=== PATIENT | female | born 1945 | race Caucasian/White ===

== ENCOUNTER 2022-08-18 16:37 | Inpatient (IN) | payer MEDICARE, OTHER ==
[2022-08-18] MEDS ORDERED: SODIUM CHLORIDE 0.9% 500 ML 500 ML IV STA (17:01)
--- NOTE | 2022-08-18 17:06 | ED ---
General Adult HPI - General Chief complaint: Syncope Stated complaint: Weakness,knee pain Time Seen by Provider: 08/18/22 16:41 Source: patient, RN notes reviewed Mode of arrival: EMS Limitations: no limitations - History of Present Illness Initial comments: This is a pleasant 77-year-old female comes ER complaining of right knee pain. Patient states she fell in the bathroom onto her right knee. Initially saying that she L and she is going to pass out walker. No radiation. Pain is exacerbated by attempted ambulation, palpation, and movement. Somewhat alleviated by rest. With the the patient also did bump her head despite his efforts to try to catch her. Patient is not on anticoagulation medications. No headache, no fever or chills, no changes in vision or hearing, no sore throat or difficulty with speech, no neck pain, no chest pain or shortness of breath, no abdominal pain, no nausea or vomiting, no changes in urination or bowel movements, no numbness or tingling, no extremity pain, no skin rashes or lesions. Past medical, surgical, social, and family history reviewed. The patient is denying any headache, neck pain, patient had no focal neurologic deficits. No symptoms consistent with stroke or seizure. - Related Data Home Medications Medication Instructions Recorded Confirmed Naproxen (Unknown Dose) 1 tab PO DAILY PRN 08/18/22 08/18/22 Allergies Allergy/AdvReac Type Severity Reaction Status Date / Time No Known Allergies Allergy Verified 08/18/22 18:23 Review of Systems ROS Statement: Those systems with pertinent positive or pertinent negative responses have been documented in the HPI. ROS Other: All systems not noted in ROS Statement are negative. Past Medical History Past Medical History: No Reported History History of Any Multi-Drug Resistant Organisms: None Reported Past Surgical History: Joint Replacement, Orthopedic Surgery Past Psychological History: No Psychological Hx Reported Smoking Status: Current every day smoker Past Alcohol Use History: None Reported Past Drug Use History: Marijuana General Exam - General Exam Comments Initial Comments: Healthy-appearing 77-year-old female in no significant distress at the time seeing her. Cranial nerves II through XII are intact. Head is normocephalic atraumatic. No evidence of hematoma or injury. Limitations: no limitations General appearance: alert, in no apparent distress Head exam: Present: atraumatic, normocephalic, normal inspection Eye exam: Present: normal appearance, PERRL, EOMI. Absent: scleral icterus, conjunctival injection, periorbital swelling ENT exam: Present: normal exam, mucous membranes moist Neck exam: Present: normal inspection, full ROM. Absent: tenderness, men ingismus, lymphadenopathy Respiratory exam: Present: normal lung sounds bilaterally. Absent: respiratory distress, wheezes, rales, rhonchi, stridor, chest wall tenderness, accessory muscle use, decreased breath sounds, prolonged expiratory Cardiovascular Exam: Present: regular rate, normal rhythm, normal heart sounds. Absent: systolic murmur, diastolic murmur, rubs, gallop, clicks GI/Abdominal exam: Present: soft, normal bowel sounds. Absent: distended, tenderness, guarding, rebound, rigid Extremities exam: Present: tenderness, normal capillary refill. Absent: pedal edema, calf tenderness Right Hip exam: Present: normal inspection, full ROM. Absent: swelling, abrasion Upper Leg exam: Present: normal inspection. Absent: tenderness, swelling Knee exam: Present: tenderness, swelling, effusion, full knee extension. Absent: full ROM (Limited by pain), abrasion, laceration, ecchymosis, deformity, dislocation, erythema Lower Leg exam: Present: normal inspection. Absent: tenderness, swelling, abrasion Ankle exam: Present: normal inspection, full ROM. Absent: tenderness, swelling Foot/Toe exam: Present: normal inspection, full ROM. Absent: tenderness, swelling, abrasion Neurovascular tendon exam: Absent: no vascular compromise, abnormal cap refill, sensory deficit, tendon deficit, extremity cold to touch, pallor Gait: not tested/not observed Back exam: Present: normal inspection Neurological exam: Present: alert, oriented X3, CN II-XII intact Psychiatric exam: Present: normal affect, normal mood Skin exam: Present: warm, dry, intact, normal color. Absent: rash Course Vital Signs 08/18/22 16:44 Temperature 98 F Pulse Rate 68 Respiratory 18 Rate Blood Pressure 121/70 O2 Sat by Pulse 100 Oximetry - Reevaluation(s) Reevaluation #1: 08/18/22 19:01 Medical record is reviewed Symptoms are improved here in the emergency department, patient cannot ambulate due to pain, patient cranial nerves II through XII intact. Alert and oriented 4. Patient is informed of results and questions answered Patient in no distress 10/24/22 19:36 - Consultations Consultation #1: Case discussed in detail with Dr. Douglass with sepsis admission of the patient. Orthopedics will be on consult. Consultation #2: Case discussed in detail with the on-call orthopedic physician, Dr. Villanueva. Patient being admitted for syncope, secondarily for a knee injury after having a syncopal episode. He is okay with the patient be admitted to medicine and he can be on consult. He did not believe the patient needed to be admitted to trauma service. EKG Findings - EKG Comments: EKG Findings:: EKG done at 1744 and reviewed by the ED attending physician reveals sinus rhythm with sinus arrhythmia, rate of 66, prolonged QRS duration of 120 ms. Remainder of the intervals are normal. Left axis deviation. R Angela. In V1 and V2 consistent with right bundle-branch block. 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 Poor R-wave progression. No comparison study Medical Decision Making - Medical Decision Making Forsan syncope score Low risk 1.9% risk of 30-day serious adverse event (, arrhythmia, [place] full list in Evidence) - Lab Data Result diagrams: 08/18/22 17:43 08/18/22 17:43 Lab Results 08/18/22 08/18/22 08/18/22 Range/Units 17:43 17:43 17:43 WBC 9.7 (3.8-10.6) k/uL RBC 4.33 (3.80-5.40) m/uL Hgb 13.5 (11.4-16.0) gm/dL Hct 41.0 (34.0-46.0) % MCV 94.8 (80.0-100.0) fL MCH 31.2 (25.0-35.0) pg MCHC 32.9 (31.0-37.0) g/dL RDW 12.8 (11.5-15.5) % Plt Count 277 (150-450) k/uL MPV 8.4 Neutrophils % 84 % Lymphocytes % 10 % Monocytes % 5 % Eosinophils % 1 % Basophils % 0 % Neutrophils # 8.2 H (1.3-7.7) k/uL Lymphocytes # 0.9 L (1.0-4.8) k/uL Monocytes # 0.5 (0-1.0) k/uL Eosinophils # 0.1 (0-0.7) k/uL Basophils # 0.0 (0-0.2) k/uL PT 10.2 (9.0-12.0) sec INR 0.9 (<1.2) APTT 22.9 (22.0-30.0) sec Sodium 135 L (137-145) mmol/L Potassium 4.9 (3.5-5.1) mmol/L Chloride 100 (98-107) mmol/L Carbon Dioxide 25 (22-30) mmol/L Anion Gap 10 mmol/L BUN 20 H (7-17) mg/dL Creatinine 0.61 (0.52-1.04) mg/dL Est GFR (CKD-EPI)AfAm >90 (>60 ml/min/1.73 sqM) Est GFR (CKD-EPI)NonAf 87 (>60 ml/min/1.73 sqM) Glucose 115 H (74-99) mg/dL Calcium 9.1 (8.4-10.2) mg/dL Magnesium 2.0 (1.6-2.3) mg/dL Total Bilirubin 0.4 (0.2-1.3) mg/dL AST 25 (14-36) U/L ALT 15 (4-34) U/L Alkaline Phosphatase 78 (38-126) U/L Troponin I (0.000-0.034) ng/mL NT-Pro-B Natriuret Pep pg/mL Total Protein 6.6 (6.3-8.2) g/dL Albumin 4.1 (3.5-5.0) g/dL 08/18/22 08/18/22 Range/Units 17:43 17:43 WBC (3.8-10.6) k/uL RBC (3.80-5.40) m/uL Hgb (11.4-16.0) gm/dL Hct (34.0-46.0) % MCV (80.0-100.0) fL MCH (25.0-35.0) pg MCHC (31.0-37.0) g/dL RDW (11.5-15.5) % Plt Count (150-450) k/uL MPV Neutrophils % % Lymphocytes % % Monocytes % % Eosinophils % % Basophils % % Neutrophils # (1.3-7.7) k/uL Lymphocytes # (1.0-4.8) k/uL Monocytes # (0-1.0) k/uL Eosinophils # (0-0.7) k/uL Basophils # (0-0.2) k/uL PT (9.0-12.0) sec INR (<1.2) APTT (22.0-30.0) sec Sodium (137-145) mmol/L Potassium (3.5-5.1) mmol/L Chloride (98-107) mmol/L Carbon Dioxide (22-30) mmol/L Anion Gap mmol/L BUN (7-17) mg/dL Creatinine (0.52-1.04) mg/dL Est GFR (CKD-EPI)AfAm (>60 ml/min/1.73 sqM) Est GFR (CKD-EPI)NonAf (>60 ml/min/1.73 sqM) Glucose (74-99) mg/dL Calcium (8.4-10.2) mg/dL Magnesium (1.6-2.3) mg/dL Total Bilirubin (0.2-1.3) mg/dL AST (14-36) U/L ALT (4-34) U/L Alkaline Phosphatase (38-126) U/L Troponin I <0.012 (0.000-0.034) ng/mL NT-Pro-B Natriuret Pep 196 pg/mL Total Protein (6.3-8.2) g/dL Albumin (3.5-5.0) g/dL Disposition Clinical Impression: Syncope and collapse, Injury of right knee, Internal derangement of right knee, Closed head injury Disposition: ADMITTED IP TO THIS [facility] Condition: Stable Is patient prescribed a controlled substance at d/c from ED?: No Referrals: None,Stated [Primary Care Provider] - 1-2 days Time of Disposition: 19:37 Decision to Admit Reason: Admit from EC Decision Time: 19:37
[2022-08-18 18:08] LABS: ALT 15 U/L (4-34); AST 25 U/L (14-36); African American GFR (CKD) >90 (>60 ml/min/1.73 sqM); Albumin 4.1 g/dL (3.5-5.0); Alkaline Phosphatase 78 U/L (38-126); Anion Gap 10 mmol/L; Basophils % (A) 0 %; Blood Urea Nitrogen 20 mg/dL (7-17); Calcium 9.1 mg/dL (8.4-10.2); Carbon Dioxide 25 mmol/L (22-30); Chloride 100 mmol/L (98-107); Eosinophils # (A) 0.1 k/uL (0-0.7); Eosinophils % (A) 1 %; Glucose 115 mg/dL (74-99); HGB 13.5 gm/dL (11.4-16.0); Lymphocytes # (A) 0.9 k/uL (1.0-4.8); Lymphocytes % (A) 10 %; MCH 31.2 pg (25.0-35.0); MCHC 32.9 g/dL (31.0-37.0); MCV 94.8 fL (80.0-100.0); Mean Platelet Volume 8.4; Monocytes # (A) 0.5 k/uL (0-1.0); Monocytes % (A) 5 %; Neutrophils # (A) 8.2 k/uL (1.3-7.7); Neutrophils % (A) 84 %; Non-African American GFR(CKD) 87 (>60 ml/min/1.73 sqM); Platelet Count 277 k/uL (150-450); Potassium 4.9 mmol/L (3.5-5.1); RBC 4.33 m/uL (3.80-5.40); RDW 12.8 % (11.5-15.5); Sodium 135 mmol/L (137-145); Total Bilirubin 0.4 mg/dL (0.2-1.3); Total Protein 6.6 g/dL (6.3-8.2); WBC 9.7 k/uL (3.8-10.6)
[2022-08-18 18:18] LABS: INR 0.9 (<1.2); Partial Thromboplastin Time 22.9 sec (22.0-30.0); Prothrombin Time 10.2 sec (9.0-12.0)
--- NOTE | 2022-08-18 18:29 | CT ---
EXAMINATION TYPE: CT brain malvin cochran con DATE OF EXAM: 08/18/2022 COMPARISON: None HISTORY: syncope/fall CT DLP: 1242.6 mGycm Automated exposure control for dose reduction was used. Images of the brain and cervical spine obtained with no contrast. There is mild atrophy. No mass effect or midline shift. No sign of intracranial hemorrhage. Calvarium is intact. There is normal aeration of the mastoid sinuses. The cervical vertebra show some mild straightening. Posterior elements are intact. Facet joints are i ntact. There is narrowing of disc spaces from C3 to C7 with minor spurring of the endplates. No compr ession fracture. Facet joints are intact. There is minimal hypertrophic facet arthropathy. IMPRESSION: Cerebral mild atrophy. No acute intracranial abnormality. Mild cervical spondylotic changes. No fracture.
--- NOTE | 2022-08-18 18:48 | XR ---
EXAMINATION TYPE: XR knee complete RT DATE OF EXAM: 08/18/2022 COMPARISON: NONE HISTORY: Knee pain TECHNIQUE: 3 views FINDINGS: There is right knee prosthesis. There are small joint effusion. I see no fracture nor dislo cation. There is vascular calcification. IMPRESSION: Negative right knee exam. No fracture seen.
--- NOTE | 2022-08-18 18:55 | XR ---
EXAMINATION TYPE: XR chest 1V portable DATE OF EXAM: 08/18/2022 COMPARISON: NONE HISTORY: Syncope TECHNIQUE: Single view FINDINGS: Heart is normal. Lungs are clear of consolidation. There is pulmonary hyperinflation with s ome flattening of the diaphragm. There are no hilar masses. Thoracic aorta is atheromatous. IMPRESSION: COPD. No active cardiopulmonary disease.
[2022-08-18] MEDS ORDERED: HYDROcodone/APAP 5-325MG 1 EACH TAB PO STA (19:37)
[2022-08-18] MEDS ORDERED: ONDANSETRON 4 MG/2 ML VIAL IVP PRN (20:08)
[2022-08-18] MEDS ORDERED: ACETAMINOPHEN TAB 325 MG TAB PO PRN (20:08)
[2022-08-18] MEDS ORDERED: NALOXONE 0.4 MG/ML 1 ML VIAL IV PRN (20:08)
[2022-08-18] MEDS ORDERED: ACETAMINOPHEN TAB 500 MG TAB PO PRN (20:14)
[2022-08-18] MEDS: HEPARIN SODIUM,PORCINE/PF 5,000 UNIT/0.5 ML SYRINGE SQ SCH (20:49)
--- NOTE | 2022-08-19 00:50 | P.HPIM ---
History of Present Illness H&P Date: 08/18/22 The patient is a 77-year-old female with a PMH of bilateral knee replacements, diverticulosis with recurrent episode of diverticulitis who presents to the emergency room after an episode of syncope with fall and right knee pain. The patient reports that she has been suffering from colitis for most of her life and that she normally has a bowel movement every 2-3 days. States that normally just prior to having a bowel movement, she develops dizziness for which she often has to lay on the ground. He reports that this has been a normal occurrence throughout her life with numerous episodes of sick be. Reports that earlier today, she had a bowel movement after 3 days , and as she stood up from the toilet, she immediately felt lightheaded, called for her , and subsequently lost consciousness. She has been immediately came to her side and found her on the ground with her knee bent at a strange angle. The patient reports severe pain at the right knee, 2 out of 10 at rest, and 10 out of 10 with movement, with inability to move the right leg. She denied experiencing chest discomfort, shortness of breath, palpitations, shaking movements, urinary, or bowel incontinence. The patient reports that she was unconscious for a couple of minutes. Does report head trauma. Denied post ictal confusion, speech impairments, or focal weakness. Head/cervical spine CT in the emergency room was unremarkable with a right knee x-ray also unremarkable. Chest x-ray was consistent with COPD with no acute abnormalities. EKG revealed sinus a with marked sinus arrhythmia with a right bundle branch block, left anterior fascicular block at 66 bpm. Laboratory evaluation was remarkable for troponin less than 0.012 and proBNP 196. Review of systems: Pertinent positives and negatives as discussed in HPI, a complete review of systems was performed and all other systems are negative. Physical examination: General: non toxic, no distress, appears at stated age, normal weight Derm: no unusual rashes/lesions, warm Head: atraumatic, normocephalic, symmetric Eyes: EOMI, no lid lag, anicteric sclera, pupils equal round reactive to light ENT: Nose and ears atraumatic Neck: No cervical lymphadenopathy, trachea midline, supple Mouth: no lip lesion, mucus membranes moist Cardiovascular: S1S2 reg, no murmur, positive dorsalis pedis pulse bilateral, no edema Lungs: CTA bilateral, no rhonchi, no rales, no accessory muscle use Abdominal: soft, nontender to palpation, no guarding Ext: muscle strength 5 out of 5 in all extremities except RLE, patient refusing to move or allow RLE, no R knee joint gross abnormalities noted, no gross muscle atrophy, no contractures Neuro: CN II-XI grossly intact, no gross focal neuro deficits Psych: Alert, oriented, appropriate affect Assessment/plan Syncope with fall and R knee trauma -Orthopedic surgery consult in light of hx of knee replacement -Pain control -PT consult -Cardiac monitoring -Obtain orthostatics -Echocardiogram -Fall precautions DVT prophylaxis -Heparin subq The patient is admitted with an anticipated less than 2 midnight stay for evaluation of R knee pain CODE STATUS: Full Code Discussed with: Patient Anticipated discharge date: in am Anticipated discharge place: Home Past Medical History Past Medical History: No Reported History History of Any Multi-Drug Resistant Organisms: None Reported Past Surgical History: Joint Replacement, Orthopedic Surgery Past Psychological History: No Psychological Hx Reported Smoking Status: Current every day smoker Past Alcohol Use History: None Reported Past Drug Use History: Marijuana - Past Family History Father Family Medical History: Hypertension Medications and Allergies Home Medications Medication Instructions Recorded Confirmed Type Naproxen (Unknown Dose) 1 tab PO DAILY PRN 08/18/22 08/18/22 History Allergies Allergy/AdvReac Type Severity Reaction Status Date / Time No Known Allergies Allergy Verified 08/18/22 18:23 Physical Exam Vitals: Vital Signs Temp Pulse Resp BP Pulse Ox 08/18/22 16:44 98 F 68 18 121/70 100 Intake and Output 08/18/22 08/18/22 08/18/22 06:59 14:59 22:59 Other: Weight 122 kg Results CBC & Chem 7: 08/18/22 17:43 08/18/22 17:43 Labs: Abnormal Lab Results - Last 24 Hours (Table) 08/18/22 08/18/22 Range/Units 17:43 17:43 Neutrophils # 8.2 H (1.3-7.7) k/uL Lymphocytes # 0.9 L (1.0-4.8) k/uL Sodium 135 L (137-145) mmol/L BUN 20 H (7-17) mg/dL Glucose 115 H (74-99) mg/dL
[2022-08-19] MEDS: MORPHINE SULFATE 4 MG/ML SYRINGE IV PRN ×5 (02:34→21:36)
[2022-08-19] MEDS: HEPARIN SODIUM,PORCINE/PF 5,000 UNIT/0.5 ML SYRINGE SQ SCH ×2 (09:14→21:36)
[2022-08-19 09:18] LABS: Basophils # (A) 0.04 X 10*3/uL (0.00-0.10); Basophils % (A) 0.5 %; Eosinophils # (A) 0.19 X 10*3/uL (0.04-0.35); Eosinophils % (A) 2.4 %; HCT 35.7 % (37.2-46.3); HGB 11.7 g/dL (12.0-15.0); Immature Grans, Automated 0.3 %; Lymphocytes # (A) 2.62 X 10*3/uL (0.90-5.00); Lymphocytes % (A) 32.8 %; MCH 30.8 pg (27.0-32.0); MCHC 32.8 g/dL (32.0-37.0); MCV 93.9 fL (80.0-97.0); Mean Platelet Volume 10.5 fL (9.5-12.2); Monocytes # (A) 0.72 X 10*3/uL (0.20-1.00); NRBC Per 100 WBC 0 /100 WBCS (0.0-0.0); Platelet Count 249 X 10*3/uL (140-440); RDW 13.6 % (11.5-14.5); WBC 7.99 X 10*3/uL (4.50-10.00)
[2022-08-19 09:23] LABS: African American GFR (CKD) 100.5 (60.0-200.0); Anion Gap 10.2 mmol/L (10.00-18.00); BUN/Creat Ratio 32.5 Ratio (12.00-20.00); Blood Urea Nitrogen 19.5 mg/dL (9.0-27.0); Calcium 8.5 mg/dL (8.7-10.3); Carbon Dioxide 24.8 mmol/L (20.0-27.5); Magnesium 1.9 mg/dL (1.5-2.4); Non-African American GFR(CKD) 86.7 (60.0-200.0); Potassium 4.3 mmol/L (3.5-5.5)
--- NOTE | 2022-08-19 10:31 | P.CNOR ---
History of Present Illness - [facility] Consult date: 08/19/22 History of present illness: This patient is a 77- year old female with a past medical history of diverticulitis, who is a current every day smoker who presented to [facility] emergency department yesterday via EMS after a fall at home. Patient states she was at the toilet at home, and felt lightheaded. She fell to the ground after a syncopal episode, and twisted her knee. She was unable to get up on her own, therefore EMS was called. Patient was admitted under the care of internal medicine with a consult placed to orthopedic surgery for evaluation of her right knee. Patient has a history of right total knee arthroplasty in [place] about 5 years ago. Patient also has history of left total knee arthroplasty by Dr. Shoemaker. Patient is examined bedside this morning in the emergency department. Her daughter is also bedside. Patient is complaining of isolated right knee pain. She states prior to her fall yesterday, she had no major issues with the right knee. She is able to ambulate without pain or assistance device at baseline. She denies right hip pain. She denies any additional complaints at this time. Vital signs stable. Past Medical History Past Medical History: No Reported History History of Any Multi-Drug Resistant Organisms: None Reported Past Surgical History: Joint Replacement, Orthopedic Surgery Past Psychological History: No Psychological Hx Reported Smoking Status: Current every day smoker Past Alcohol Use History: None Reported Past Drug Use History: Marijuana - Past Family History Father Family Medical History: Hypertension Medications and Allergies Home Medications Medication Instructions Recorded Confirmed Type Naproxen (Unknown Dose) 1 tab PO DAILY PRN 08/18/22 08/18/22 History Allergies Allergy/AdvReac Type Severity Reaction Status Date / Time No Known Allergies Allergy Verified 08/18/22 18:23 Physical Examination On examination, patient is sitting up on the gurney in no apparent distress. She is alert and oriented 3. Her head appears normocephalic and atraumatic. Her breathing appears nonlabored. On inspection of her bilateral upper extremities, there are no obvious deformities or signs of trauma. On inspection of her left lower extremity, no obvious deformities or signs of trauma. There is a scar at the anterior knee consistent with prior total knee arthroplasty. On inspection of the right knee, there is mild swelling. Small knee effusion. No open wounds. There is a well-healed incision in the anterior knee consistent with a prior total knee arthroplasty. There is diffuse pain on palpation of the anterior knee. No pain to palpation of the right hip, thigh, lower leg, ankle, foot. There is minimal pain with passive range of motion of the right hip. Any attempts at passive range of motion of the right knee produces significant pain. Motor and sensory function intact right lower extremity. Dorsalis pedis pulse easily palpable, RLE warm and well perfused. Results Right knee x-ray 08/18/22: Prior total knee arthroplasty with stable implants. No acute fractures identified. - Labs Labs: Abnormal Lab Results - Last 24 Hours (Table) 08/18/22 08/18/22 08/19/22 Range/Units 17:43 17:43 05:42 RBC 3.80 L (4.10-5.20) X 10*6/uL Hgb 11.7 L (12.0-15.0) g/dL Hct 35.7 L (37.2-46.3) % Neutrophils # 8.2 H (1.3-7.7) k/uL Lymphocytes # 0.9 L (1.0-4.8) k/uL Sodium 135 L (137-145) mmol/L BUN 20 H (7-17) mg/dL BUN/Creatinine Ratio (12.00-20.00) Ratio Glucose 115 H (74-99) mg/dL Calcium (8.7-10.3) mg/dL 08/19/22 Range/Units 05:42 RBC (4.10-5.20) X 10*6/uL Hgb (12.0-15.0) g/dL Hct (37.2-46.3) % Neutrophils # (1.3-7.7) k/uL Lymphocytes # (1.0-4.8) k/uL Sodium (137-145) mmol/L BUN (7-17) mg/dL BUN/Creatinine Ratio 32.50 H (12.00-20.00) Ratio Glucose (74-99) mg/dL Calcium 8.5 L (8.7-10.3) mg/dL H & H 08/18/22 08/19/22 Range/Units 17:43 05:42 Hgb 13.5 11.7 L (11.4-16.0) gm/dL Hct 41.0 35.7 L (34.0-46.0) % Coagulation 08/18/22 Range/Units 17:43 INR 0.9 (<1.2) Result Diagrams: 08/19/22 05:42 08/19/22 05:42 Assessment and Plan Assessment: Right knee pain Prior right total knee arthroplasty by outside provider about 5-6 years ago Plan: - Clinical and imaging findings were discussed with the patient and her daughter. Patient was discussed with Dr. Villanueva. No surgical intervention recommended at this time. Patient will be placed in a knee immobilizer for comfort. She should keep this brace on at all times besides hygiene. She should protect her weightbearing with crutches or walker. - Recommend rest, ice, elevation of right knee for swelling and pain control. Pain medication per primary team. - Physical therapy for gait and balance training. - Patient should follow-up in the office in one week with Dr. Villanueva for further evaluation. We will follow patient as she remains inpatient and make recommendations as needed.
--- NOTE | 2022-08-19 17:20 | P.PN ---
Subjective Progress Note Date: 08/19/22 Hospital course: Patient is a very pleasant 77-year-old female with a past medical history of bilateral knee replacements, diverticulosis with recurrent episodes of diverticulitis and orthostatic hypotension. She presented to the emergency department with a chief complaint of syncopal episode resulting in fall and right knee pain. Patient reports frequent episodes of dizziness when bearing down with bowel movements and during this episode she fell to the ground losing consciousness and injuring her right knee. Patient currently reports inability to bend or lift right leg secondary to severe pain in right knee. She underwent full evaluation in the emergency department CBC, coags, and CMP showing no significant abnormalities. Troponin negative at less than 0.012. EKG revealing sinus rhythm at 66 bpm with a right bundle branch block. CT head and cervical spine negative for acute intercranial process revealing mild cervical spondylitic changes. X-ray right knee negative for acute fracture, revealing a small joint effusion and right knee prosthesis. Patient was admitted under our services with consultation to orthopedic surgery. Physical exam: Vital signs reviewed and stable. General: Nontoxic, no distress and appears stated age. Derm: Skin warm and dry, normal coloration for ethnicity. Head: Atraumatic, normocephalic and symmetric. Eyes: EOMs intact, no lid lag, and anicteric sclera Mouth: no lip lesions, mucus membranes moist Cardiovascular: regular rate and rhythm with normal S1S2, no murmur, positive posterior tibial pulses bilaterally, and cap refill < 2 seconds. Lungs: Respirations even, regular, and unlabored on room air. Lungs CTA bila terally, no rhonchi, no rales, no wheezing, and no accessory muscle usage. Abdominal: soft, nontender to palpation, no guarding, no appreciable organomegaly Ext: Movement and sensation intact. No gross muscle atrophy, no edema, no contractures patient reports she is unable to bend or lift right leg secondary to severe pain in her right knee.. Neuro: Speech clear, face symmetrical and CN II-XII grossly intact with no noted focal neuro deficits Psych: Alert and oriented to person, place, time, and situation. Appropriate and pleasant affect. Assessment and Plan of Care: Syncope with fall and R knee trauma -Orthopedic surgery consulted in light of hx of knee replacement -Pain control -PT consult -Cardiac monitoring -Orthostatic vital -Echocardiogram -Fall precautions CODE STATUS: Full code DVT prophylaxis: Heparin Discussed with: Patient and RN Anticipated discharge date: Likely tomorrow pending orthopedic surgery recommendations. Anticipated discharge place: Home A total of 33 minutes was spent on the care of this complex patient more than 50% of the time was spent in counseling and care coordination. Rock Layne NP rendered care for this patient independently, reviewed the findings and plan as documented in the note above. I did not physically speak with or examine the patient on this date. Objective - Vital Signs Vital signs: Vital Signs Temp 97.7 F 08/19/22 09:06 Pulse 71 08/19/22 09:06 Resp 18 08/19/22 09:06 BP 147/78 08/19/22 07:41 Pulse Ox 96 08/19/22 09:06 FiO2 Intake & Output 08/18/22 08/19/22 08/19/22 18:59 06:59 18:59 Weight 122 kg - Labs CBC & Chem 7: 08/19/22 05:42 08/19/22 05:42 Labs: Abnormal Lab Results - Last 24 Hours (Table) 08/18/22 08/18/22 08/19/22 Range/Units 17:43 17:43 05:42 RBC 3.80 L (4.10-5.20) X 10*6/uL Hgb 11.7 L (12.0-15.0) g/dL Hct 35.7 L (37.2-46.3) % Neutrophils # 8.2 H (1.3-7.7) k/uL Lymphocytes # 0.9 L (1.0-4.8) k/uL Sodium 135 L (137-145) mmol/L BUN 20 H (7-17) mg/dL BUN/Creatinine Ratio (12.00-20.00) Ratio Glucose 115 H (74-99) mg/dL Calcium (8.7-10.3) mg/dL 08/19/22 Range/Units 05:42 RBC (4.10-5.20) X 10*6/uL Hgb (12.0-15.0) g/dL Hct (37.2-46.3) % Neutrophils # (1.3-7.7) k/uL Lymphocytes # (1.0-4.8) k/uL Sodium (137-145) mmol/L BUN (7-17) mg/dL BUN/Creatinine Ratio 32.50 H (12.00-20.00) Ratio Glucose (74-99) mg/dL Calcium 8.5 L (8.7-10.3) mg/dL
[2022-08-19 23:04] LABS: Appearance,Urine Clear (Clear); Bilirubin,Urine Negative (Negative); Blood,Urine Negative (Negative); Color,Urine Yellow; Glucose,Urine (UA) Negative (Negative); Ketones,Urine Negative (Negative); Leukocyte Esterase,Urine Negative (Negative); Nitrite,Urine Negative (Negative); Protein,Urine Negative (Negative); Specific Gravity,Urine 1.015 (1.001-1.035); Urobilinogen,Urine <2.0 mg/dL (<2.0)
[2022-08-20] MEDS: MORPHINE SULFATE 4 MG/ML SYRINGE IV PRN ×4 (07:32→22:09)
[2022-08-20] MEDS ORDERED: HYDROcodone/APAP 5-325MG 1 EACH TAB PO PRN (09:02)
--- NOTE | 2022-08-20 09:55 | CA ---
Transthoracic Echo Report Name: Lisha Tolentino Age: 77 Gender: F : 1945 Exam Date: 08/19/2022 07:40 Exam Location: [place] [facility] Ht (in): 64 Wt (lb): 120 Ordering Physician: Dallas Vargas MD Attending/Referring Phys: Principal Systems Architect Veronica Pineda RDCS Procedure CPT: Indications: Syncope Cardiac Hx: Technical Quality: Good Contrast 1: Total Dose (mL): Contrast 2: Total Dose (mL): MEASUREMENTS (Male / Female) Normal Values 2D ECHO LV Diastolic Diameter PLAX 4.0 cm 4.2 - 5.9 / 3.9 - 5.3 cm LV Systolic Diameter PLAX 2.5 cm IVS Diastolic Thickness 0.8 cm 0.6 - 1.0 / 0.6 - 0.9 cm LVPW Diastolic Thickness 1.0 cm 0.6 - 1.0 / 0.6 - 0.9 cm LV Relative Wall Thickness 0.5 RV Internal Dim ED PLAX 3.1 cm LA Systolic Diameter LX 2.8 cm 3.0 - 4.0 / 2.7 - 3.8 cm LA Volume 27.8 cm??? 18 - 58 / 22 - 52 cm??? M-MODE Aortic Root Diameter MM 3.2 cm MV E Point Septal Separation 0.5 cm AV Cusp Separation MM 1.5 cm DOPPLER AV Peak Velocity 154.2 cm/s AV Peak Gradient 9.5 mmHg MV Area PHT 2.5 cm??? Mitral E Point Velocity 90.8 cm/s Mitral A Point Velocity 116.3 cm/s Mitral E to A Ratio 0.8 MV Deceleration Time 299.5 ms MV E' Velocity 8.2 cm/s Mitral E to MV E' Ratio 11.1 TR Peak Velocity 275.1 cm/s TR Peak Gradient 30.3 mmHg Right Ventricular Systolic Press 35.2 mmHg FINDINGS Left Ventricle Left ventricular ejection fraction is estimated at 60-65 %. Left ventricular cavity size normal. Left ventricular wall thickness normal. Right Ventricle Normal right ventricular size and function. Mild pulmonary hypertension. Right Atrium Normal right atrial size. Left Atrium Normal left atrial size. Mitral Valve Mitral valve thickened. Mitral annular calcification. Aortic Valve Trileaflet aortic valve. Tricuspid Valve Mild tricuspid regurgitation. Pulmonic Valve Trace pulmonic regurgitation. Pericardium Normal pericardium. No pericardial effusion. Aorta Normal size aortic root and proximal ascending aorta. CONCLUSIONS Normal LV size and systolic function Previewed by: Dr. Tuan Casillas MD (Electronically Signed) Final Date: 20 August 2022 09:54
[2022-08-20] MEDS: HEPARIN SODIUM,PORCINE/PF 5,000 UNIT/0.5 ML SYRINGE SQ SCH ×2 (09:58→22:08)
--- NOTE | 2022-08-20 10:30 | P.PN ---
Subjective Progress Note Date: 08/20/22 This patient is a 77- year old female with a past medical history of diverticulitis, who is a current every day smoker who presented to [facility] emergency department yesterday via EMS after a fall at home. Patient states she was at the toilet at home, and felt lightheaded. She fell to the ground after a syncopal episode, and twisted her knee. She was unable to get up on her own, therefore EMS was called. Patient was admitted under the care of internal medicine with a consult placed to orthopedic surgery for evaluation of her right knee. Patient has a history of right total knee arthroplasty in [place] about 5 years ago. Patient also has history of left total knee arthroplasty by Dr. Shoemaker. Patient is examined bedside this morning in the emergency department. Her daughter is also bedside. Patient is complaining of isolated right knee pain. She states prior to her fall yesterday, she had no major issues with the right knee. She is able to ambulate without pain or assistance device at baseline. She denies right hip pain. She denies any additional complaints at this time. Vital signs stable. 08/20/22: Patient is examined bedside this morning. Her granddaughter is also bedside. Patient believes her right knee pain has improved slightly from yesterday. She has been icing the knee and this has helped. She has declined the knee immobilizer, she states it makes her pain worse. She denies hip pain. Physical therapy is going to evaluated the patient this morning. There are no new complaints today. Objective - Vital Signs Vital signs: Vital Signs Temp 98.0 F 08/20/22 07:00 Pulse 82 08/20/22 07:00 Resp 17 08/20/22 07:00 BP 151/72 08/20/22 07:00 Pulse Ox 94 L 08/20/22 07:00 FiO2 Intake & Output 08/19/22 08/20/22 08/20/22 18:59 06:59 18:59 Intake Total 0 500 59 Balance 0 500 59 Weight 122 kg Intake: Oral 0 500 59 Other: Voiding Method Bedpan # Voids 1 # Bowel Movements 1 1 - Exam On examination, patient is sitting up in bed in no apparent distress. She is alert and orientated x3. On inspection of the right knee, healed incision at the anterior knee consistent with prior TKA. There is a mild knee effusion. Diffuse pain on palpation of the anterior knee. No pain with palpation of the right hip, lower leg, ankle, foot. Significant pain with any attempts at passive [id number] of the right knee. No pain with log rolling of the right hip. Motor and sensory function intact RLE. RLE warm and well perfused. Calf non- tender. - Labs CBC & Chem 7: 08/19/22 05:42 08/19/22 05:42 Assessment and Plan Assessment: Right knee pain Prior right total knee arthroplasty by outside provider about 5-6 years ago Plan: - No surgical intervention recommended at this time. Recommend symptomatic treatment to include rest, ice, elevation, bracing, and pain medication as needed. We discussed the possibility of obtaining a CT scan of the right knee, although this most likely would not change our current treatment plan. The patient and her granddaughter are agreeable continue symptomatic treatment without obtaining a CT scan at this time. - Recommend evaluation by physical therapy. She is refusing knee immobilizer at this time. Recommend patient protect her weight bearing on the right knee with a walker. - We will continue to follow patient peripherally as she remains inpatient. She should follow-up in the office in one week for re-evaluation.
[2022-08-20] MEDS ORDERED: HYDROcodone/APAP 7.5-325MG 1 EACH TAB PO PRN (12:30)
[2022-08-20] MEDS ORDERED: SODIUM CHLORIDE 0.9% 1,000 ML IV ONE (16:06)
--- NOTE | 2022-08-20 16:50 | P.PN ---
Subjective Progress Note Date: 08/20/22 Patient is a 77-year-old female with a history of bilateral knee replacements, diverticulosis with recurrent episodes of diverticulitis and orthostatic hypotension. She presented to the emergency department with a chief complaint of syncopal episode resulting in fall and right knee pain. In the emergency department she underwent an extensive evaluation. CBC, coags, and CMP showing no significant abnormalities. Troponin negative at less than 0.012. EKG revealed sinus rhythm at 66 bpm with a right bundle branch block. CT head and cervical spine negative for acute intercranial process revealing mild cervical spondylitic changes. X-ray right knee negative for acute fracture, revealing a small joint effusion and right knee prosthesis. Patient was placed in observation. Orthopedic surgery was consulted who recommended no surgical intervention at this time, but did recommend a knee brace with weightbearing as tolerated. Excoriation seen and examined at bedside with family present. She has been unsuccessful at getting out of bed secondary to pain. She states her [place] did not work and was not strong enough. She does not want to consider going to rehab as her is at home in [place] and is currently undergoing chemotherapy. Per family she has been staying with her daughter who is not helping. We discussed that this is likely going to be a long rehabilitation process and that our goal will be to get her adequate pain control and transfer her outside of the hospital. Patient and family in agreement. General: nontoxic, no distress, appears at stated age Derm: warm, dry Head: atraumatic, normocephalic, symmetric Eyes: EOMI, no lid lag, anicteric sclera Mouth: no lip lesion, mucus membranes moist Cardiovascular: S1S2 reg, no murmur, positive posterior tibial pulse bilateral, Lungs: CTA bilateral, no rhonchi, no rales , no accessory muscle use Abdominal: soft, nontender to palpation, no guarding, no appreciable organomegaly Ext: no gross muscle atrophy, no edema, no contractures - Pain to palpation of right knee, joint effusion on the lateral knee area, posterior knee with swelling Neuro: CN II-XI grossly intact, no focal neuro deficits Psych: Alert, oriented, appropriate affect Assessment/Plan: Right knee strain, concern for ligamentous tear -Orthopedic recommendations -Patient is unable to tolerate brace - increase oral pain medications - PT/OT recommendations Orthostatic hypotension -Orthostatic vitals were repeated today -Continue to be positive -Trial 1 L of IV fluids -Ideally would benefit from compression stockings or Lui wrap, however patient has been unable to tolerate these in the past -She'll need to follow-up with insole coverer/primary in [place] DVT prophylaxis: Heparin Discussed with: patient, nursing, and patients family Anticipated discharge: in AM Anticipated discharge place: home A total of 35 minutes was spent on the care of this complex patient more than 50% of the time was spent in counseling and care coordination. Active Medications Generic Name Dose Route Start Last Admin Trade Name Freq PRN Reason Stop Dose Admin Acetaminophen 650 mg 08/18/22 20:08 Acetaminophen Tab 325 Mg Tab PO Q6HR PRN Mild Pain or Fever > 100.5 Acetaminophen 500 mg 08/18/22 20:14 Acetaminophen Tab 500 Mg Tab PO Q6HR PRN Fever and/ or Pain Hydrocodone Bitart/Acetaminophen 1 each 08/20/22 12:30 Hydrocodone/Apap 7.5-325mg 1 Each Tab PO Q6HR PRN Pain Heparin Sodium (Porcine) 5,000 unit 08/18/22 21:00 08/20/22 09:58 Heparin Sodium,Porcine/Pf 5,000 Unit/0.5 Ml Syringe SQ 5,000 unit Q12HR ALEJA Administration Sodium Chloride 1,000 mls @ 999 mls/hr 08/20/22 16:06 Saline 0.9% IV 08/20/22 17:06 .Q1H1M ONE Morphine Sulfate 4 mg 08/18/22 20:08 08/20/22 15:11 Morphine Sulfate 4 Mg/Ml Syringe IV 4 mg Q4HR PRN Administration Severe Pain (Scale 7 to 10) Naloxone HCl 0.2 mg 08/18/22 20:08 Naloxone 0.4 Mg/Ml 1 Ml Vial IV Q2M PRN Opioid Reversal Ondansetron HCl 4 mg 08/18/22 20:08 Ondansetron 4 Mg/2 Ml Vial IVP Q8HR PRN Nausea And Vomiting Objective - Vital Signs Vital signs: Vital Signs Temp 98.3 F 08/20/22 15:00 Pulse 103 H 08/20/22 15:00 Resp 16 08/20/22 15:00 BP 111/58 08/20/22 15:00 Pulse Ox 98 08/20/22 15:00 FiO2 Intake & Output 08/19/22 08/20/22 08/20/22 18:59 06:59 18:59 Intake Total 0 500 299 Balance 0 500 299 Weight 122 kg Intake: Oral 0 500 299 Other: Voiding Method Bedpan # Voids 1 1 # Bowel Movements 1 1 - Labs CBC & Chem 7: 08/19/22 05:42 08/19/22 05:42
--- NOTE | 2022-08-20 19:11 | CT ---
EXAMINATION TYPE: CT knee RT w con DATE OF EXAM: 08/20/2022 COMPARISON: None HISTORY: Rt knee pain. CT DLP: 687.10 mGycm Automated exposure control for dose reduction was used. CONTRAST: Performed with IV Contrast, patient injected with 100cc mL of Isovue 300. Images obtained from the distal femur to the mid tibia without contrast. There is a right knee prosthesis. The components appear in good position. There is vascular calcifica tion. There is mild knee joint effusion. No fracture seen. No evidence of focal bone destruction. Exa m limited by metal artifact. IMPRESSION: Knee prosthesis in good position. No fracture seen. Small joint effusion.
--- NOTE | 2022-08-20 22:11 | XR ---
EXAMINATION TYPE: XR femur RT DATE OF EXAM: 08/20/2022 COMPARISON: NONE HISTORY: Pain TECHNIQUE: 5 views FINDINGS: There is a right knee prosthesis. Components appear in anatomic position. There are 2 screw s in the mid shaft of the femur. There is old healed fracture midshaft of the femur There is atherosclerotic vascular calcification I see no definite hip fracture. There is mild acetabu lar spurring. IMPRESSION: No acute abnormality of the right femur. No fracture seen.
[2022-08-21] MEDS: MORPHINE SULFATE 4 MG/ML SYRINGE IV PRN ×2 (02:59→08:59)
--- NOTE | 2022-08-21 08:20 | P.PN ---
Progress Note - Text Progress Note Date: 08/21/22 I examined the patient last evening and again this morning. Briefly, she has moderate to severe pain in her knee following a fall after a syncopal episode. She also has a history of a knee replacement in [place] several years ago that prior to her fall was doing well and pain free. Her initial xrays were read as normal, but due to continued pain and inability to mobilize, a CT scan and full length femur films were obtained that show a non-displaced fracture of her lateral femoral condyle. Her knee implant appears well-fixed and stable. I would recommend non-operative treatment with NWB and a hinged knee brace. She will need serial xrays to monitor her implants. I also discussed discharge and that she would like benefit from rehab. She seems to understand, but wants to be at home with her who is going through chemotherapy. We will continue to follow.
[2022-08-21] MEDS: HEPARIN SODIUM,PORCINE/PF 5,000 UNIT/0.5 ML SYRINGE SQ SCH ×2 (09:02→20:35)
[2022-08-21] MEDS: oxyCODONE-APAP 5-325MG 1 EACH TAB PO PRN ×2 (13:38→20:35)
--- NOTE | 2022-08-21 16:41 | P.PN ---
Subjective Progress Note Date: 08/21/22 (delayed charting seen at 0845) Patient is a 77-year-old female with a history of bilateral knee replacements, diverticulosis with recurrent episodes of diverticulitis and orthostatic hypotension. She presented to the emergency department with a chief complaint of syncopal episode resulting in fall and right knee pain. In the emergency department she underwent an extensive evaluation. CBC, coags, and CMP showing no significant abnormalities. Troponin negative at less than 0.012. EKG reve aled sinus rhythm at 66 bpm with a right bundle branch block. CT head and cervical spine negative for acute intercranial process revealing mild cervical spondylitic changes. X-ray right knee negative for acute fracture, revealing a small joint effusion and right knee prosthesis. Patient was placed in observation. Orthopedic surgery was consulted who recommended no surgical intervention at this time, but did recommend a knee brace with weightbearing as tolerated. Patient continued to have significant pain and orthopedic surgery was asked to reevaluate the patient. She underwent right femur x-ray which showed no acute abnormality. She underwent CT right knee which was read by radiology as knee prosthesis in good position with no fracture seen, Dr. Barksdale reviewed the films which showed a nondisplaced fracture of her lateral femoral condyle. Patient seen and examined at bedside with family present. General: nontoxic, no distress, appears at stated age Derm: warm, dry Head: atraumatic, normocephalic, symmetric Eyes: EOMI, no lid lag, anicteric sclera Mouth: no lip lesion, mucus membranes moist Cardiovascular: S1S2 reg, no murmur, positive posterior tibial pulse bilateral, Lungs: CTA bilateral, no rhonchi, no rales , no accessory muscle use Abdominal: soft, nontender to palpation, no guarding, no appreciable organomegaly Ext: no gross muscle atrophy, no edema, no contractures - Pain to palpation of right knee, joint effusion on the lateral knee area, posterior knee with swelling Neuro: CN II-XI grossly intact, no focal neuro deficits Psych: Alert, oriented, appropriate affect Assessment/Plan: Intractable right knee pain related to nondisplaced fracture of the lateral femoral condyle -Orthopedic recommendations appreciated. Nonweightbearing to the right lower extremity with a hinged knee brace. -Myself and orthopedic surgery as well as physical therapy has recommended rehab. However patient would like to be at home with her who is receiving chemotherapy. I've asked her to discuss the family how they may accomplish this. - Pain medication was transitioned yesterday to include [place] 5% up to 7.5 as it did not control this. [place] 7.5 has continued to not control her pain and she has required multiple doses of IV morphine. We'll transition from [place] to Percocet. - Continue with PT and OT. Orthostatic hypotension - continue to monitor -Ideally would benefit from compression stockings or Lui wrap, however patient has been unable to tolerate these in the past -She'll need to follow-up with supervisor drying and winding/primary in [place] Patient has failed outpatient conservative treatment of her right knee pain. With new diagnosis of lateral femoral condylar fracture as well as continued intractable pain requiring multiple doses of IV medication despite up titration of oral medication patient will be transitioned to inpatient status. Discharge at this time 1 result of clinical worsening. The patient at increased risk for falls and worsening fracture. DVT prophylaxis: Heparin Discussed with: patient, nursin Anticipated discharge: oending clinic course Anticipated discharge place: home [facility] home health vs SNF A total of 35 minutes was spent on the care of this complex patient more than 50% of the time was spent in counseling and care coordination. Objective - Vital Signs Vital signs: Vital Signs Temp 98.0 F 08/21/22 13:51 Pulse 77 08/21/22 13:51 Resp 16 08/21/22 13:51 BP 120/60 08/21/22 13:51 Pulse Ox 93 L 08/21/22 13:51 FiO2 Intake & Output 08/20/22 08/21/22 08/21/22 18:59 06:59 18:59 Intake Total 299 750 Balance 299 750 Intake: Oral 299 750 Other: Voiding Method Bedpan # Voids 1 1 - Labs CBC & Chem 7: 08/19/22 05:42 08/19/22 05:42
[2022-08-22] MEDS: oxyCODONE-APAP 5-325MG 1 EACH TAB PO PRN ×3 (08:49→20:25)
[2022-08-22] MEDS: HEPARIN SODIUM,PORCINE/PF 5,000 UNIT/0.5 ML SYRINGE SQ SCH ×2 (08:49→20:25)
--- NOTE | 2022-08-22 12:59 | CDI ---
Documentation Clarification Form Date: 08/22/2022 12:49:25 PM From: Ida PascalJEROME rivera, CCDS Admit Date: 08/21/2022 02:32:00 PM Patient Name: Lisha Tolentino Visit Number: [id number] Discharge Date: ATTENTION: The Clinical Documentation Specialists (CDI) and [facility] Coding Staff appreciate your assistance in clarifying documentation. Please respond to the clarification below the line at the bottom and electronically sign. The CDI & [facility] Coding staff will review the response and follow-up if needed. Please note: Queries are made part of the Legal Health Record. If you have any questions, please contact the author of this message via ITS. Dr. Chaya Jung: Additional clarification is requested in regard to the patient's bedscale weight. History/Risk Factors per the 08/18 H/P: COPD, Bilateral knee replacements, Diverticulosis with recurrent episodes of Diverticulitis and Colitis most of the patient's life, per the patient, current smoker. Clinical Indicators: Presented to the ED via EMS on 08/18 after a Syncopal Episode at home, complaining of weakness and right knee pain. The patient fell at home in the bathroom and was unable to get up. Admit with the same for evaluation. BMI: 46.2 (per bedscale). Treatment 08/18: Regular diet, Ortho Consulted. PT/OT. po [place] 5-325, po Tylenol 650 mg q6H/prn, IV Morphine 4 mg q4H/prn. Can you please clarify if the following is present: [ ] Obesity [ ] Morbid Obesity [ X] Other, please specify: [ ] Unable to determine (Template Last Revised: December 2020) Anticipate charting error, patient is thin and not obese on physical exam MTDD
--- NOTE | 2022-08-22 13:03 | P.PN ---
Subjective Progress Note Date: 08/22/22 This patient is a 77- year old female with a past medical history of diverticulitis, who is a current every day smoker who orthopedics is following for a right non-displaced fracture lateral femoral condyle. Patient is examined bedside this morning with Dr. Villanueva. Hinged knee brace was ordered yesterday and patient states her knee pain has improved with wearing this brace. She overall feels better today. Pain medication was increased to Percocet per Dr. Jung yesterday. Patient states she is considering discharging to rehab. She has no new complaints today. Objective - Vital Signs Vital signs: Vital Signs Temp 97.7 F 08/22/22 09:00 Pulse 86 08/22/22 09:00 Resp 18 08/22/22 09:00 BP 131/78 08/22/22 09:00 Pulse Ox 94 L 08/22/22 09:00 FiO2 Intake & Output 08/21/22 08/22/22 08/22/22 18:59 06:59 18:59 Intake Total 118 350 Balance 118 350 Intake: Oral 118 350 Other: Voiding Method Bedside Commode Bedpan # Voids 1 1 # Bowel Movements 1 - Exam On examination, patient is sitting up in bed in no apparent distress. She is alert and orientated x3. On inspection of the right knee, hinged knee brace in place and appears well-fitting. Motor and sensory function intact RLE. RLE warm and well perfused. - Labs CBC & Chem 7: 08/19/22 05:42 08/19/22 05:42 Assessment and Plan Assessment: Right non-displaced fracture lateral femoral condyle. Right TKA by outside provider. Plan: - Strict non-weight bearing right lower extremity. Keep hinged knee brace on at all times besides bathing. - Ice, elevate right knee for swelling and pain control. Pain medication per admitting team. - Physical therapy for gait and balance training. - Recommend discharge to rehab. Patient should follow-up in the office in one week with Dr. Villanueva for repeat x-rays of the right knee.
--- NOTE | 2022-08-22 14:24 | P.PN ---
Subjective Progress Note Date: 08/22/22 (delayed charting seen at 0845) Patient is a 77-year-old female with a history of bilateral knee replacements, diverticulosis with recurrent episodes of diverticulitis and orthostatic hypotension. She presented to the emergency department with a chief complaint of syncopal episode resulting in fall and right knee pain. In the emergency department she underwent an extensive evaluation. CBC, coags, and CMP showing no significant abnormalities. Troponin negative at less than 0.012. EKG reve aled sinus rhythm at 66 bpm with a right bundle branch block. CT head and cervical spine negative for acute intercranial process revealing mild cervical spondylitic changes. X-ray right knee negative for acute fracture, revealing a small joint effusion and right knee prosthesis. Patient was placed in observation. Orthopedic surgery was consulted who recommended no surgical intervention at this time, but did recommend a knee brace with weightbearing as tolerated. Patient continued to have significant pain and orthopedic surgery was asked to reevaluate the patient. She underwent right femur x-ray which showed no acute abnormality. She underwent CT right knee which was read by radiology as knee prosthesis in good position with no fracture seen, Dr. Montaño reviewed the films and read them as a nondisplaced fracture of her lateral femoral condyle- which is more consistent with the clinical picture. Patient seen and examined at bedside. She states that pain is much better today and percocet is working better, has been able to get up and down to the bedside commode. Still with inability to ambulate. Is now agreeable to SNF. General: nontoxic, no distress, appears at stated age Derm: warm, dry Head: atraumatic, normocephalic, symmetric Eyes: EOMI, no lid lag, anicteric sclera Mouth: no lip lesion, mucus membranes moist Cardiovascular: S1S2 reg, no murmur, positive posterior tibial pulse bilateral, Lungs: CTA bilateral, no rhonchi, no rales , no accessory muscle use Abdominal: soft, nontender to palpation, no guarding, no appreciable organomegaly Ext: no gross muscle atrophy, no edema, no contractures - Pain to palpation of right knee, joint effusion on the lateral knee area, posterior knee with swelling Neuro: CN II-XI grossly intact, no focal neuro deficits Psych: Alert, oriented, appropriate affect Assessment/Plan: Intractable right knee pain related to non-displaced fracture of the lateral femoral condyle -Orthopedic recommendations appreciated. Non-weight bearing to the right lower extremity with a hinged knee brace. - Patient is now amenable to rehab. - Continue with percocet, morphine for break throught - Continue with PT and OT. 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 DVT prophylaxis: Heparin Discussed with: patient, nursin Anticipated discharge: once auth obtained Anticipated discharge place:SNF A total of 25 minutes was spent on the care of this complex patient more than 50% of the time was spent in counseling and care coordination. Objective - Vital Signs Vital signs: Vital Signs Temp 97.7 F 08/22/22 13:37 Pulse 80 08/22/22 13:37 Resp 22 08/22/22 13:37 BP 108/62 08/22/22 13:37 Pulse Ox 96 08/22/22 13:37 FiO2 Intake & Output 08/21/22 08/22/22 08/22/22 18:59 06:59 18:59 Intake Total 118 350 240 Balance 118 350 240 Intake: Oral 118 350 240 Other: Voiding Method Bedside Commode Bedpan # Voids 1 1 2 # Bowel Movements 1 - Labs CBC & Chem 7: 08/19/22 05:42 08/19/22 05:42
[2022-08-23] MEDS: oxyCODONE-APAP 5-325MG 1 EACH TAB PO PRN ×4 (02:54→21:37)
[2022-08-23] MEDS: HEPARIN SODIUM,PORCINE/PF 5,000 UNIT/0.5 ML SYRINGE SQ SCH ×2 (07:22→21:37)
[2022-08-23] MEDS ORDERED: SENNOSIDES 8.6 MG TAB PO PRN (09:03)
--- NOTE | 2022-08-23 09:57 | P.PN ---
Subjective Progress Note Date: 08/23/22 Patient is a 77-year-old female with a history of bilateral knee replacements, diverticulosis with recurrent episodes of diverticulitis and orthostatic hypotension. She presented to the emergency department with a chief complaint of syncopal episode resulting in fall and right knee pain. In the emergency department she underwent an extensive evaluation. CBC, coags, and CMP showing no significant abnormalities. Troponin negative at less than 0.012. EKG revealed sinus rhythm at 66 bpm with a right bundle branch block. CT head and cervical spine negative for acute intercranial process revealing mild cervical spondylitic changes. X-ray right knee negative for acute fracture, revealing a small joint effusion and right knee prosthesis. Patient was placed in observation. Orthopedic surgery was consulted who recommended no surgical intervention at this time, but did recommend a knee brace with weightbearing as tolerated. Patient continued to have significant pain and orthopedic surgery was asked to reevaluate the patient. She underwent right femur x-ray which showed no acute abnormality. She underwent CT right knee which was read by radiology as knee prosthesis in good position with no fracture seen, Dr. Montaño reviewed the films and read them as a nondisplaced fracture of her lateral femoral condyle- which is more consistent with the clinical picture. He did better with Percocet. She was able to get up and down to the bedside commode. Patient seen and examined at bedside. She is still feeling frustrated. Percocet is working. She states she can get up and walk but has not been. I've asked her to get up and attempt to walk with a walker and therapy to the door to see if she could potentially go home and set up to rehab. General: nontoxic, no distress, appears at stated age Derm: warm, dry Head: atraumatic, normocephalic, symmetric Eyes: EOMI, no lid lag, anicteric sclera Mouth: no lip lesion, mucus membranes moist Cardiovascular: S1S2 reg, no murmur, positive posterior tibial pulse bilateral, Lungs: Decreased bs bilateral, no rhonchi, no rales , no accessory muscle use Abdominal: soft, nontender to palpation, no guarding, no appreciable organom egaly Ext: no gross muscle atrophy, no edema, no contractures - Pain to palpation of right knee, joint effusion on the lateral knee area, posterior knee with swelling Neuro: CN II-XI grossly intact, no focal neuro deficits Psych: Alert, oriented, anger affect Assessment/Plan: Intractable right knee pain related to non-displaced fracture of the lateral femoral condyle - Orthopedic recommendations appreciated. Non-weight bearing to the right lower extremity with a hinged knee brace. - Patient is now amenable to rehab. - Continue with percocet, morphine for break through - Continue with PT and OT. 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 DVT prophylaxis: Heparin Discussed with: patient, nursin Anticipated discharge: once auth obtained Anticipated discharge place:[facility] home A total of 25 minutes was spent on the care of this complex patient more than 50% of the time was spent in counseling and care coordination. Objective - Vital Signs Vital signs: Vital Signs Temp 97.7 F 08/23/22 07:00 Pulse 67 08/23/22 07:00 Resp 18 08/23/22 07:00 BP 135/72 08/23/22 07:00 Pulse Ox 96 08/23/22 07:00 FiO2 Intake & Output 08/22/22 08/23/22 08/23/22 18:59 06:59 18:59 Intake Total 240 Balance 240 Weight 55 kg Intake: Oral 240 Other: Voiding Method Bedside Commode Bedside Commode # Voids 2 1 # Bowel Movements 1 - Labs CBC & Chem 7: 08/19/22 05:42 08/19/22 05:42
[2022-08-24] MEDS: oxyCODONE-APAP 5-325MG 1 EACH TAB PO PRN ×4 (04:55→23:05)
[2022-08-24] MEDS: HEPARIN SODIUM,PORCINE/PF 5,000 UNIT/0.5 ML SYRINGE SQ SCH ×2 (07:16→20:41)
--- NOTE | 2022-08-24 09:19 | P.DS ---
Providers Date of admission: 08/21/22 14:32 Expected date of discharge: 08/24/22 Attending physician: Bertha Douglass MD Consults: 08/18/22 20:08 Consult Physician Stat Consulting Provider: Telly Villanueva Consult Reason/Comments: Right knee injury Do you want consulting provider notified?: Already Contacted Primary care physician: Stated None Assessment: Discharge Diagnosis: Intractable right knee pain related to non-displaced fracture of the lateral femoral condyle Orthostatic hypotension Hospital Course: Patient is a 77-year-old female with a history of bilateral knee replacements, diverticulosis with recurrent episodes of diverticulitis and orthostatic hypotension. She presented to the emergency department with a chief complaint of syncopal episode resulting in fall and right knee pain. In the emergency department she underwent an extensive evaluation. CBC, coags, and CMP showing no significant abnormalities. Troponin negative at less than 0.012. EKG revealed sinus rhythm at 66 bpm with a right bundle branch block. CT head and cervical spine negative for acute intercranial process revealing mild cervical spondylitic changes. X-ray right knee negative for acute fracture, revealing a small joint effusion and right knee prosthesis. Patient was placed in observation. Orthopedic surgery was consulted who recommended no surgical intervention at this time, but did recommend a knee brace with weightbearing as tolerated. Patient continued to have significant pain and orthopedic surgery was asked to reevaluate the patient. She underwent right femur x-ray which showed no acute abnormality. She underwent CT right knee which was read by radiology as knee prosthesis in good position with no fracture seen, Dr. Montaño reviewed the films and read them as a nondisplaced fracture of her lateral femoral condyle- which is more consistent with the clinical picture. She did better with Percocet. She was able to get up and down to the bedside commode. Her pain control improved significantly. She was seen by physical therapy on 08/23 was able to ambulate with a walker to the door. She feels that her pain is controlled and she can manage at home. Follow-up: Dr. Tipton in 1-2 weeks, primary care physician on return to [place], take medications as prescribed. Patient seen and examined at bedside. She states that her pain is well controlled. She thinks that she can manage at home and that her family can help her. She was able to ambulate with a walker to the door yesterday. Vital signs reviewed and stable. General: nontoxic, no distress, appears at stated age Derm: warm, dry Head: atraumatic, normocephalic, symmetric Eyes: EOMI, no lid lag, anicteric sclera Mouth: no lip lesion, mucus membranes moist Cardiovascular: S1S2 reg, no murmur, positive posterior tibial pulse bilateral, Lungs: CTA bilateral, no rhonchi, no rales , no accessory muscle use Abdominal: soft, nontender to palpation, no guarding, no appreciable organomegaly Ext: no gross muscle atrophy, no edema, no contractures, brace on right leg Neuro: CN II-XI grossly intact, no focal neuro deficits Psych: Alert, oriented, appropriate affect A total of 25 minutes of time were spent preparing this complex discharge summary. Patient was discharged on 08/24/22. Patient Condition at Discharge: Stable Plan - Discharge Summary Discharge Rx Participant: Yes New Discharge Prescriptions: New oxyCODONE-APAP 5-325MG [Percocet 5-325 mg] 1 each PO Q6HR PRN #28 tab PRN Reason: Pain Continue Naproxen (Unknown Dose) 1 tab PO DAILY PRN PRN Reason: Pain Discharge Medication List Naproxen (Unknown Dose) 1 tab PO DAILY PRN 08/18/22 [History] oxyCODONE-APAP 5-325MG [Percocet 5-325 mg] 1 each PO Q6HR PRN #28 tab 08/24/22 [Rx] Follow up Appointment(s)/Referral(s): Home [facility] [NON-STAFF] - 1 Week None,Stated [Primary Care Provider] - 1-2 days Telly Villanueva MD [Medical Doctor] - 1 Week Patient Instructions/Handouts: Leg Fracture (DC) Activity/Diet/Wound Care/Special Instructions: Activity: Non-weight bearing right lower extremity. Use walker or crutches for ambulation. Keep hinged knee brace on at all times besides bathing. Diet: regular Special Instructions: Dr. Ailsa Saldana, DO [address], [place], [place] [id number] Discharge Disposition: HOME WITH HOME HEALTH SERVICES
[2022-08-25] MEDS: oxyCODONE-APAP 5-325MG 1 EACH TAB PO PRN ×3 (06:46→18:42)
[2022-08-25] MEDS: HEPARIN SODIUM,PORCINE/PF 5,000 UNIT/0.5 ML SYRINGE SQ SCH ×2 (09:49→21:03)
--- NOTE | 2022-08-25 12:15 | P.PN ---
Subjective Progress Note Date: 08/25/22 Patient is a 77-year-old female with a history of bilateral knee replacements, diverticulosis with recurrent episodes of diverticulitis and orthostatic hypotension. She presented to the emergency department with a chief complaint of syncopal episode resulting in fall and right knee pain. In the emergency department she underwent an extensive evaluation. CBC, coags, and CMP showing no significant abnormalities. Troponin negative at less than 0.012. EKG revealed sinus rhythm at 66 bpm with a right bundle branch block. CT head and cervical spine negative for acute intercranial process revealing mild cervical spondylitic changes. X-ray right knee negative for acute fracture, revealing a small joint effusion and right knee prosthesis. Patient was placed in observation. Orthopedic surgery was consulted who recommended no surgical intervention at this time, but did recommend a knee brace with weightbearing as tolerated. Patient continued to have significant pain and orthopedic surgery was asked to reevaluate the patient. She underwent right femur x-ray which showed no acute abnormality. She underwent CT right knee which was read by radiology as knee prosthesis in good position with no fracture seen, Dr. Montaño reviewed the films and read them as a nondisplaced fracture of her lateral femoral condyle- which is more consistent with the clinical picture. He did better with Percocet. She was able to get up and down to the bedside commode. Patient seen and examined at bedside. He is being controlled with Percocet. Still has not been successful getting up and on her own. General: nontoxic, no distress, appears at stated age Derm: warm, dry Head: atraumatic, normocephalic, symmetric Eyes: EOMI, no lid lag, anicteric sclera Mouth: no lip lesion, mucus membranes moist Cardiovascular: S1S2 reg, no murmur, positive posterior tibial pulse bilateral, Lungs: Decreased bs bilateral, no rhonchi, no rales , no accessory muscle use Abdominal: soft, nontender to palpation, no guarding, no appreciable organomegaly Ext: no gross muscle atrophy, no edema, no contractures - Pain to palpation of right knee, joint effusion on the lateral knee area, posterior knee with swelling Neuro: CN II-XI grossly intact, no focal neuro deficits Psych: Alert, oriented, anger affect Assessment/Plan: Intractable right knee pain related to non-displaced fracture of the lateral femoral condyle - Orthopedic recommendations appreciated. Non-weight bearing to the right lower extremity with a hinged knee brace. - Continue with percocet, morphine for break through - Continue with PT and OT. Orthostatic hypotension - continue to monitor -Ideally would benefit from compression stockings or Lui wrap, however patient has been unable to tolerate these in the past -She'll need to follow-up with field service rep/primary in [place] Currently awaiting auth for SNF placement, discharge once auth obtained. DVT prophylaxis: Heparin Discussed with: patient, nursin Anticipated discharge: once auth obtained Anticipated discharge place:[facility]NF[facility] home A total of 25 minutes was spent on the care of this complex patient more than 50% of the time was spent in counseling and care coordination. Objective - Vital Signs Vital signs: Vital Signs Temp 98 F 08/25/22 08:00 Pulse 69 08/25/22 08:00 Resp 14 08/25/22 08:00 BP 148/67 08/25/22 08:00 Pulse Ox 95 08/25/22 08:00 FiO2 Intake & Output 08/24/22 08/25/22 08/25/22 18:59 06:59 18:59 Intake Total 240 480 Balance 240 480 Intake: Oral 240 480 Other: Voiding Method Bedside Commode Bedside Commode # Voids 2 3 - Labs CBC & Chem 7: 08/19/22 05:42 08/19/22 05:42
[2022-08-26] MEDS: oxyCODONE-APAP 5-325MG 1 EACH TAB PO PRN ×3 (01:46→14:15)
[2022-08-26 08:02] VITALS: RESP 16
[2022-08-26] MEDS: HEPARIN SODIUM,PORCINE/PF 5,000 UNIT/0.5 ML SYRINGE SQ SCH (08:27)
--- NOTE | 2022-08-26 11:43 | P.DS ---
Providers Date of admission: 08/21/22 14:32 Expected date of discharge: 08/26/22 Attending physician: Bertha Douglass MD Consults: 08/18/22 20:08 Consult Physician Stat Consulting Provider: Telly Villanueva Consult Reason/Comments: Right knee injury Do you want consulting provider notified?: Already Contacted Primary care physician: Stated None Hospital Course: Discharge Diagnosis: Intractable right knee pain secondary to non-displaced fracture of the lateral femoral condyle. Syncopal episode secondary to Orthostatic hypotension, Patient follows outpatient with her forms builder in [place] and reports has been dealing with orthostatic hypotension for many years. It is recommended patient to continue to follow up outpatient with her forms builder upon return to [place]. Also discussed with patient that she would benefit from IBRAHIMA hose/compression stockings, however patient reports inability to tolerate these in the past. Hospital Course: Patient is a 77-year-old female with a history of bilateral knee replacements, diverticulosis with recurrent episodes of diverticulitis and orthostatic hypotension. She presented to the emergency department with a chief complaint of syncopal episode resulting in fall and right knee pain. In the emergency department she underwent an extensive evaluation. CBC, coags, and CMP showing no significant abnormalities. Troponin negative at less than 0.012. EKG revealed sinus rhythm at 66 bpm with a right bundle branch block. CT head and cervical spine negative for acute intercranial process revealing mild cervical spondylitic changes. X-ray right knee negative for acute fracture, revealing a small joint effusion and right knee prosthesis. Patient was placed in observation. Orthopedic surgery was consulted who recommended no surgical intervention at this time, but did recommend a knee brace with weightbearing as tolerated. Patient continued to have significant pain and orthopedic surgery was asked to reevaluate the patient. She underwent right femur x-ray which showed no acute abnormality. She underwent CT right knee which was read by radiology as knee prosthesis in good position with no fracture seen, Dr. Montaño reviewed the films and read them as a nondisplaced fracture of her lateral femoral condyle- which is more consistent with the clinical picture. She did better with Percocet. She was able to get up and down to the bedside commode. Her pain control improved significantly. She was seen by physical therapy on 08/23 was able to ambulate with a walker to the door. . PT/OT recommending long term facility. Insurance authorization has been obtained and patient has been accepted to [facility]. Patient is medically stable for discharge at this time and to follow up with Dr. Tipton in 1-2 weeks, primary care physician on return to [place], take medications as prescribed. Physical exam: Patient seen and examined at bedside. She states that her pain is well controlled and is medically stable for discharge to long term facility at this time. Vital signs reviewed and stable. General: nontoxic, no distress, appears at stated age Derm: warm, dry Head: atraumatic, normocephalic, symmetric Eyes: EOMI, no lid lag, anicteric sclera Mouth: no lip lesion, mucus membranes moist Cardiovascular: S1S2 reg, no murmur, positive posterior tibial pulse bilateral, Lungs: CTA bilateral, no rhonchi, no rales , no accessory muscle use Abdominal: soft, nontender to palpation, no guarding, no appreciable organomegaly Ext: no gross muscle atrophy, no edema, no contractures, brace on right leg Neuro: CN II-XI grossly intact, no focal neuro deficits Psych: Alert, oriented, appropriate affect A total of 31 minutes of time were spent preparing this complex discharge summary. Patient was discharged on 08/26/22 at 11:43 AM Rock Layne NP rendered care for this patient independently, reviewed the findings and plan as documented in the note above. I did not physically speak with or examine the patient on this date. Assessment: Patient Condition at Discharge: Stable Plan - Discharge Summary Discharge Rx Participant: Yes New Discharge Prescriptions: New oxyCODONE-APAP 5-325MG [Percocet 5-325 mg] 1 each PO Q6HR PRN #28 tab PRN Reason: Pain Acetaminophen Tab [Tylenol] 650 mg PO Q6HR PRN tab PRN Reason: Mild Pain Or Fever > 100.5 Continue Naproxen (Unknown Dose) 1 tab PO DAILY PRN PRN Reason: Pain Discharge Medication List Naproxen (Unknown Dose) 1 tab PO DAILY PRN 08/18/22 [History] oxyCODONE-APAP 5-325MG [Percocet 5-325 mg] 1 each PO Q6HR PRN #28 tab 08/24/22 [Rx] Acetaminophen Tab [Tylenol] 650 mg PO Q6HR PRN tab 08/26/22 [Rx] Follow up Appointment(s)/Referral(s): [facility] [NON-STAFF] - 1 Week None,Stated [Primary Care Provider] - 1-2 days Telly Villanueva MD [Medical Doctor] - 1 Week Patient Instructions/Handouts: Leg Fracture (DC) Activity/Diet/Wound Care/Special Instructions: Activity: Non-weight bearing right lower extremity. Use walker or crutches for ambulation. Keep hinged knee brace on at all times besides bathing. Diet: regular Special Instructions: Dr. Alisa Saldana, DO [address], [place] [address] Discharge Disposition: TRANSFER TO SNF/ECF
[2022-08-26 14:42] VITALS: BP 127/85; PULSE 97; TEMP 97.5
== END 2022-08-26 17:39 | disposition home health service (06) | DRG 534 ==
LOC: EC 16:37 → 6NMEDSUR 20:13 → OBSVTOIN 08-21 14:32
PROVIDERS: ADMIT Internal Medicine; ATTEND Internal Medicine
PROC: 2W3LX1Z Immobilization of Right Lower Extremity using Splint (ICD-10-PCS; principal; 2022-08-19)
DX: S72.424A Nondisplaced fracture of lateral condyle of right femur, initial encounter for closed fracture (principal); I45.2 Bifascicular block; S09.90XA Unspecified injury of head, initial encounter; J44.9 Chronic obstructive pulmonary disease, unspecified; M46.92 Unspecified inflammatory spondylopathy, cervical region; I95.1 Orthostatic hypotension; K57.90 Diverticulosis of intestine, part unspecified, without perforation or abscess without bleeding; F17.210 Nicotine dependence, cigarettes, uncomplicated; Z71.6 Tobacco abuse counseling; Z96.653 Presence of artificial knee joint, bilateral; Z91.81 History of falling; W18.30XA Fall on same level, unspecified, initial encounter; Y92.002 Bathroom of unspecified non-institutional (private) residence as the place of occurrence of the external cause
CPT/HCPCS: 36415; 70450; 71045; 72125; 80048; 80053; 81003; 83735; 83880; 84484; 85025; 85610; 85730; 93005; 93306; 99285